=== PATIENT | male | born 1945 | race Caucasian/White ===

== ENCOUNTER → 2016-11-17 | Outpatient (CLI) | payer MEDICARE ==
[~2016-11-17] MED LIST: ALPR.25T PO; ASP325T PO; ASP81TEC PO; CLOP75TA PO; DILT120C PO; FISH OIL OMEGA1 EACH PO; HYOS0.1216 PO; ISM30TCR PO; MAG355OR55 PO; METO-272 PO; METO25TA2 PO; METO50TA7 PO; MTP25TSR PO; NIA500ERT PO; NITR0.4T12 SL; NTR.4SL SL; PANT40SU PO; RANO500T2 PO; RNT150T PO; SIMV40TA2 PO; SMV10T PO; SMV20T PO
--- OUTSIDE RECORDS SUMMARY | 2016-11-17 15:22 | XMS REPORT | Continuity of Care Document ---
Author Author [facility] Address Unknown Phone Unavailable Allergies Active Description Code Type Severity Reaction Onset Reported/Identified Relationship to Patient Clinical Status Yes No Known Drug Allergies [id number] Drug Allergy Unknown N/ A 01/30/2011 Medications Problems Date Dx Coded Attending Type Code Diagnosis Diagnosed By 08/20/2013 AGATHA HIGGINBOTHAM DO V04.81 FLU SHOT 10/01/2014 JEREMIAH CULVER FACC, ELIANA FACP CCDS Ot 272.4 10/01/2014 JEREMIAH CULVER FACC, ELIANA FACP CCDS Ot 401.9 10/01/2014 JEREMIAH CULVER FACC, ELIANA FACP CCDS Ot 414.00 10/01/2014 JEREMIAH CULVER FACC, ELIANA FACP CCDS Ot 786.59 Procedures Code Description Performed By Performed On G0008 FLU ADMINISTRATION (MEDICARE ONLY) 08/20/2013 Results Encounters ACCT No. Visit Date/Time Discharge Status Pt. Type Provider Facility Loc./Unit Complaint [id number] 08/20/2013 11:12:00 08/20/2013 23: 59:59 CLS Outpatient AGATHA HIGGINBOTHAM DO
--- NOTE | 2016-11-17 18:28 | Diagnostic Imaging Report ---
EXAMINATION: AP and frog lateral views of the right hip. INDICATION: Right hip pain. FINDINGS: There is significant cortical thickening and mild deformity with expanded appearance of the bone involving the right femoral head, neck, and subtrochanteric shaft. It appears to involve the shaft more distally below the level of the image as well. The frog lateral view suggests slight deformity as well. There are moderate osteoarthritis changes with particular significant joint space loss in the lateral aspect of right hip joint. No definite fracture. 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 Complete assessment with right femur radiographs is suggested. There is also moderate osteoarthritis in the right hip joint. Dictated by: Dictated on workstation # [id number]
== END ==
LOC: RAD 15:18
PROVIDERS: ATTEND Internal Medicine
DX: M25.551 Pain in right hip (principal)
CPT/HCPCS: 73502

== ENCOUNTER → 2016-11-21 | Outpatient (CLI) | payer MEDICARE ==
--- OUTSIDE RECORDS SUMMARY | 2016-11-21 15:40 | XMS REPORT | Continuity of Care Document ---
Author Author [facility] Address Unknown Phone Unavailable Allergies Active Description Code Type Severity Reaction Onset Reported/Identified Relationship to Patient Clinical Status Yes No Known Drug Allergies [id number] Drug Allergy Unknown N/ A 01/30/2011 Medications Problems Date Dx Coded Attending Type Code Diagnosis Diagnosed By 08/20/2013 AGATHA HIGGINBOTHAM DO V04.81 FLU SHOT 10/01/2014 JEREMIAH CULVER FACChaparro, ELIANA FACP CCDS Ot 272.4 10/01/2014 JEREMIAH CULVER FACC, ELIANA FACP CCDS Ot 401.9 10/01/2014 JEREMIAH CULVER FACC, ELIANA FACP CCDS Ot 414.00 10/01/2014 JEREMIAH CULVER FACC, ELIANA FACP CCDS Ot 786.59 Procedures Code Description Performed By Performed On G0008 FLU ADMINISTRATION (MEDICARE ONLY) 08/20/2013 Results Encounters ACCT No. Visit Date/Time Discharge Status Pt. Type Provider Facility Loc./Unit Complaint [id number] 08/20/2013 11:12:00 08/20/2013 23: 59:59 CLS Outpatient AGATHA HIGGINBOTHAM DO
--- NOTE | 2016-11-21 19:52 | Diagnostic Imaging Report ---
INDICATION: Right hip pain. TECHNIQUE: AP and lateral views of right femur at 4:01 PM. CORRELATION STUDY: Recent hip radiograph 11/17/2016. FINDINGS: As seen on hip views, there is marked abnormal cortical thickening and diffuse heterogeneous patchy appearance about the medullary portions throughout the entirety of the right femur. This extends from the femoral head to the distal aspect of the femur. No acute fracture. There is some medial bowing of the femur. Few areas of lucencies to the cortex are noted; however, no fracture line is suggested. There is foreshortening of the femoral neck. Marked narrowing of the hip joint. There is loss of normal rounded configuration about the femoral head. Less severe degenerative change about the knee. Vascular calcification present. IMPRESSION: 1. Diffuse cortical and trabecular thickening throughout the targeted right femur perhaps slightly more pronounced proximally compared to distally. 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 There is suggestion of altered contour with medial and posterior bowing of the femur. No definitive fracture line. Dictated by: Dictated on workstation # [id number]
== END ==
LOC: RAD 15:36
PROVIDERS: ATTEND Internal Medicine
DX: M25.551 Pain in right hip (principal); R93.7 Abnormal findings on diagnostic imaging of other parts of musculoskeletal system
CPT/HCPCS: 73552

== ENCOUNTER → 2017-06-20 | Outpatient (CLI) | payer MEDICARE ==
--- NOTE | 2017-06-20 11:06 | Diagnostic Imaging Report ---
INDICATION: History of Paget's disease. COMPARISON: 11/21/2016 FINDINGS: Four radiographic views of the right femur were obtained. There is diffuse abnormal cortical and trabecular thickening and bow deformity of the right femur. Appearance is stable compared to prior exam. There is no evidence of new acute fracture or dislocation. Moderate degenerative changes of the right femoral acetabular joint space are noted. No unexpected radiopaque foreign bodies are seen. Note is made of calcified atherosclerosis. IMPRESSION: 1. Chronic diffuse deformity of the right femur consistent with patient's clinical history of Paget's disease. 2. No new acute fracture or dislocation of the right femur. Dictated by: Dictated on workstation # [id number]
--- NOTE | 2017-06-20 11:09 | Diagnostic Imaging Report ---
INDICATION: History of Paget's. COMPARISON: 11/21/2016 FINDINGS: Two radiographic views of the right hip were obtained and again demonstrate moderate abnormal cortical and trabecular thickening of the proximal right femur. There is underlying bow deformity of the femur as well. This is better appreciated on separately performed femur series. Note is also made of moderate degenerative changes of the right hip. There is no acute fracture or dislocation. No unexpected radiopaque foreign bodies are seen. IMPRESSION: 1. Stable abnormal appearance of the proximal portions of the right femur consistent with clinical history of Paget's disease. 2. Moderate osteoarthritic changes. 3. No acute fracture or dislocation of the right hip. Dictated by: Dictated on workstation # [id number]
== END ==
LOC: RAD 10:02
PROVIDERS: ATTEND Internal Medicine
DX: M88.851 Osteitis deformans of right thigh (principal); M16.11 Unilateral primary osteoarthritis, right hip
CPT/HCPCS: 73502; 73552

== ENCOUNTER 2017-07-24 10:45 | Outpatient (RCR) | payer MEDICARE | END 2017-08-22 09:23 | disposition home or self-care (01) | PROVIDERS: ATTEND Internal Medicine | DX: M88.851 Osteitis deformans of right thigh (principal) ==

== ENCOUNTER → 2017-10-05 | Outpatient (CLI) | payer MEDICARE ==
[~2017-10-05] MED LIST changes: +REGADENOSON 0.4 MG/5 ML SYR (LEXISCAN) IV ONE
[2017-10-05] MEDS: CATHETER FLUSH 10 ML SYR IV PRN ×2 (07:22→09:11)
[2017-10-05 09:03] VITALS: BP 140/75
--- NOTE | 2017-10-05 12:12 | STRESS TEST ---
DATE OF SERVICE: 10/05/2017 RESTING AND REGADENOSON ADENOSINE TECHNETIUM-99M TETROFOSMIN SPECT CT IMAGING ORDERING PHYSICIAN: Dr. Tran. PRIMARY PHYSICIAN: Dr. Zarco. CLINICAL DIAGNOSES: Coronary artery disease, hypertension, hyperlipidemia. Baseline images were carried out after injection of 10.83 mCi of technetium-99m Tetrofosmin. This was followed by 0.4 mg regadenoson and 30.6 mCi technetium-99m Tetrofosmin for stress imaging. He tolerated the procedure well and did not report significant symptoms. The electrocardiogram did not change significantly. Review of images at rest and following stress does not indicate significant perfusion defects consistent with significant myocardial ischemia or infarction. Some degree of diaphragmatic attenuation seen both at rest and following regadenoson infusion. Gated images show normal global left ventricular systolic function with normal regional wall motion, including the diaphragmatic wall of the left ventricle. CONCLUSIONS: 1. No evidence of significant myocardial ischemia or infarction on this study. 2. Normal regional wall motion. 3. Normal global left ventricular systolic function with a calculated ejection fraction of 61%. Job ID: [id number] DocumentID: [id number] Dictated Date: 10/05/2017 10:37:31 Parts Administrator Date: 10/05/2017 11:39:03 Dictated By: ELIANA TRAN MD, MA, FACP, FACC,
== END ==
LOC: CARD 06:57
PROVIDERS: ATTEND Internal Medicine Cardiovascular Disease
DX: I25.10 Atherosclerotic heart disease of native coronary artery without angina pectoris (principal); K44.9 Diaphragmatic hernia without obstruction or gangrene; E78.4 Other hyperlipidemia; E66.8 Other obesity; I10 Essential (primary) hypertension; K21.9 Gastro-esophageal reflux disease without esophagitis
CPT/HCPCS: 78452; 93017

== ENCOUNTER → 2020-12-08 | Outpatient (CLI) | payer MEDICARE ==
[~2020-12-08] VITALS: Ht 175 cm; Wt 86.0 kg
[~2020-12-08] MED LIST changes: +CATHETER FLUSH 10 ML SYR IV PRN
[2020-12-08 09:09] VITALS: BP 143/76
--- NOTE | 2020-12-10 11:38 | STRESS TEST ---
DATE OF SERVICE: 12/08/2020 RESTING AND POST REGADENOSON TECHNETIUM-99M TETROFOSMIN SPECT CT IMAGING ORDERING PHYSICIAN: Ruth Cardenas APRN PRIMARY PHYSICIAN: Dr. Zarco. CLINICAL DIAGNOSES: Coronary artery disease. Baseline images were carried out after injection of 10.33 mCi of technetium-99m Tetrofosmin. This was followed by 0.4 mg regadenoson and 30.6 mCi of technetium-99m Tetrofosmin for stress imaging. The electrocardiogram showed sinus rhythm at baseline. It did not change significantly with the regadenoson infusion. The patient noted some facial flushing following regadenoson infusion, which resolved in a few minutes. Overall, he tolerated the procedure well. Review of images at rest and following stress does not indicate any significant perfusion defects consistent with significant myocardial ischemia or infarction. Gated images show normal global left ventricular systolic function with normal regional wall motion. Left ventricular ejection fraction is calculated to be 50%. Left ventricular end diastolic volume is 88 mL. TID is absent (1.11). CONCLUSIONS: 1. No evidence of any significant myocardial ischemia or infarction on this study. 2. Normal regional wall motion. 3. Normal global left ventricular systolic function with a calculated ejection fraction of 50%. Job ID: [id number] DocumentID: [id number] Dictated Date: 12/10/2020 08:26:36 Naval Marine Engineer Date: 12/10/2020 11:36:35 Dictated By: ELIANA DANIELS MD, MA, FACP, FACC,
== END ==
LOC: CARD 08:00
PROVIDERS: ATTEND Nurse Practitioner Family
DX: I25.10 Atherosclerotic heart disease of native coronary artery without angina pectoris (principal)
CPT/HCPCS: 78452; 93017; A9502

== ENCOUNTER 2022-07-16 13:29 | Emergency (ER) | payer MEDICARE ==
[~2022-07-16] VITALS: Ht 177.8 cm; Wt 86.0 kg
[~2022-07-16 13:29] MED LIST changes: -CATHETER FLUSH 10 ML SYR IV PRN; -REGADENOSON 0.4 MG/5 ML SYR (LEXISCAN) IV ONE
--- NOTE | 2022-07-16 13:44 | ED Chest Pain ---
General Stated Complaint: CHEST PRESSURE/PAIN Source: patient Exam Limitations: no limitations (BHARAT EVANS APRN) History of Present Illness Date Seen by Provider: Jul 16, 2022 Time Seen by Provider: 13:44 Initial Comments 69 y/o male presents today with c/o epigastric and left sided chest pain that started at 1100 this morning while he was watching football and doing laundry. Pt reports he has chest pain more often than he does not. He reports h/o chronic chest pain for many years, has renewals specialist that he sees every 6 months and is due to see him one month. He had stress test approximately one year ago that was normal.Pt also reports h/o chronic acid reflux that is "really bad" and states most of the time he thinks his pain is just from that. Today his chest pain is accompanied by nausea. He denies radiation of pain, weakness, numbness, tingling, vision changes, back pain, SOA, palpitations, dizziness, lightheadedness, syncope, vomiting, diarrhea. Timing/Duration: 1-3 hours, constant Severity/Quality: mild, aching, dull Location: epigastric (and left sided) Radiation: no radiation Prior CP/Workup: cardiac cath, stress test Associated Symptoms: nausea/vomiting (nasuea only, no vomiting) (BHARAT EVANS APRN) Allergies and Home Medications Allergies Coded Allergies: No Known Drug Allergies (Unverified , 01/30/11) Patient Home Medication List Home Medication List Reviewed: Yes (BHARAT EVANS APRN) Alprazolam (Xanax) 0.25 Mg Tablet, 1 TAB PO BID PRN, (Reported) Entered as Reported by: WEST WALDRON on 02/21/11 1546 Aspirin (Aspirin Ec 81 Mg) 81 Mg Tabec, 81 MG PO DAILY, (Reported) Entered as Reported by: WEST WALDRON on 02/21/11 1532 Clopidogrel Bisulfate (Plavix 75 Mg) 75 Mg Tablet, 75 MG PO DAILY, (Reported) Entered as Reported by: ERUM PELAEZ on 02/02/11 1009 Diltiazem Hcl (Diltiazem Cd 120 Mg (Once Daily)) 120 Mg Cap.sr.24h, 1 EACH PO DAILY, (Reported) Entered as Reported by: WEST WALDRON on 03/18/11 175 Hyoscyamine Sulfate (Rx-Levsin Sl) 0.125 Mg Subl, 0.125 MG PO NEEDED, (Reported) Entered as Reported by: HANH SHIN on 09/01/112331 Isosorbide Mononitrate (Imdur) 30 Mg Tab, 30 MG PO DAILY@06:30, (Reported) Entered as Reported by: WEST WALDRON on 02/21/11 1536 Mag Hydrox/Al Hydrox/Simeth (Mylanta Liq) 355 Ml Oral.susp, 30 ML PO PRN, (Reported) Entered as Reported by: HANH SOSA on 03/18/11 020 Metoprolol Succinate (Toprol Xl) 25 Mg Tab, 25 MG PO DAILY, (Reported) Entered as Reported by: NIVIA DOMINGO on 09/02/11 1427 Niacin (Niaspan) 500 Mg Tablet.sa, 500 MG PO DAILY, (Reported) Entered as Reported by: WEST WALDRON on 02/21/11 154 Nitroglycerin (Nitrostat) 0.4 Mg Subl, 1 TAB SL PRN, (Reported) Entered as Reported by: HANH SOSA on 03/18/11201 Midland-3/Dha/Epa/Fish Oil (Fish Oil Midland-3 1,360 Mg Sfgl) 1 Each Capsule, 2 TSP PO DAILY, (Reported) Entered as Reported by: MOJGAN VALENZUELA on 01/30/112329 Pantoprazole Sodium (Protonix SUSP.) 40 Mg Suspdr.pkt, 40 MG PO BID, (Reported) Entered as Reported by: HANH SHIN on 09/01/112331 Ranitidine Hcl (Zantac 150 Mg) 150 Mg Tablet, 1 TAB PO BID, (Reported) Entered as Reported by: WEST WALDRON on 03/18/11 175 Ranolazine (Ranexa) 500 Mg Tab.sr.12h, 500 MG PO BID, (Reported) Entered as Reported by: WEST WALDRON on 02/21/11 154 Simvastatin (Zocor) 10 Mg Tab, 10 MG PO DAILY, (Reported) Entered as Reported by: ERUM PELAEZ on 04/24/11 1219 Review of Systems Review of Systems Constitutional: no symptoms reported EENTM: No Symptoms Reported Respiratory: No Symptoms Reported; Denies Cough, Denies Orthopnea, Denies Shortness of Air, Denies SOA With Exertion, Denies SOA at Rest Cardiovascular: Chest Pain; Denies Edema, Denies Lightheadedness, Denies Palpitations, Denies Syncope Gastrointestinal: Denies Blood Streaked Stools, Denies Difficulty Swallowing; Nausea; Denies Poor Appetite, Denies Poor Fluid Intake, Denies Vomiting Genitourinary: No Symptoms Reported Musculoskeletal: no symptoms reported Skin: no symptoms reported Psychiatric/Neurological: No Symptoms Reported; Denies Headache, Denies Numbness, Denies Paresthesia, Denies Tingling, Denies Tremors, Denies Weakness Endocrine: No Symptoms Reported (BHARAT EVANS APRN) Past Lvrkqdl-Hdaerd-Qpsnol Hx Patient Social History Tobacco Use?: No Substance use?: No Alcohol Use?: No (BHARAT EVANS APRN) Past Medical History Coronary Stent Respiratory: No Neurological: No Reproductive Disorders: No Genitourinary: No Gastrointestinal: Yes Gastroesophageal Reflux Arthritis (BHARAT EVANS APRN) Physical Exam Vital Signs Vital Signs - First Documented 07/16/22 13:38 Temp 36.8 Pulse 74 Resp 16 B/P (MAP) 141/81 (101) Pulse Ox 96 O2 Delivery Room Air (BRAD ESPINO MD) Vital Signs Capillary Refill : (BHARAT EVANS APRN) Height, Weight, BMI Height: '70.00" Weight: 204lbs. oz. 92.482262hz; 28.08 BMI Method:Stated General Appearance: No Apparent Distress, WD/WN HEENT: PERRL/EOMI, Normal ENT Inspection, Moist Mucous Membranes Respiratory: Chest Non Tender, Lungs Clear, Normal Breath Sounds, No Accessory Muscle Use, No Respiratory Distress Cardiovascular: Regular Rate, Rhythm, No Edema, No Murmur, Normal Peripheral Pulses Gastrointestinal: Normal Bowel Sounds, No Organomegaly, Soft; No Abnormal Bowel Sounds, No Distended, No Guarding, No Rebound; Tenderness (mild, epigastric) Extremity: Normal Capillary Refill, Normal Inspection, Normal Range of Motion, Non Tender, No Pedal Edema Neurologic/Psychiatric: Alert, Oriented x3, No Motor/Sensory Deficits, Normal Mood/Affect, valve machine operator II-XII Norm as Tested Skin: Normal Color, Warm/Dry (BHARAT EVANS PULLEY MORTISER OPERATOR) Progress/Results/Core Measures Results/Orders Lab Results Laboratory Tests Test 07/16/22 13:54 07/16/22 16:00 Range/Units White Blood Count 5.3 4.3-11.0 10^3/uL Red Blood Count 4.71 4.30-5.52 10^6/uL Hemoglobin 14.9 13.3-17.7 g/dL Hematocrit 44 40-54 % Mean Corpuscular Volume 93 80-99 fL Mean Corpuscular Hemoglobin 32 25-34 pg Mean Corpuscular Hemoglobin Concent 34 32-36 g/dL Red Cell Distribution Width 12.7 10.0-14.5 % Platelet Count 179 130-400 10^3/uL Mean Platelet Volume 10.2 9.0-12.2 fL Immature Granulocyte % (Auto) 0 % Neutrophils (%) (Auto) 74 42-75 % Lymphocytes (%) (Auto) 14 12-44 % Monocytes (%) (Auto) 11 0-12 % Eosinophils (%) (Auto) 0 0-10 % Basophils (%) (Auto) 0 0-10 % Neutrophils # (Auto) 3.9 1.8-7.8 10^3/uL Lymphocytes # (Auto) 0.8 L 1.0-4.0 10^3/uL Monocytes # (Auto) 0.6 0.0-1.0 10^3/uL Eosinophils # (Auto) 0.0 0.0-0.3 10^3/uL Basophils # (Auto) 0.0 0.0-0.1 10^3/uL Immature Granulocyte # (Auto) 0.0 0.0-0.1 10^3/uL Prothrombin Time 14.1 12.2-14.7 SEC INR Comment 1.1 0.8-1.4 Sodium Level 141 135-145 MMOL/L Potassium Level 4.2 3.6-5.0 MMOL/L Chloride Level 104 98-107 MMOL/L Carbon Dioxide Level 25 21-32 MMOL/L Anion Gap 12 5-14 MMOL/L Blood Urea Nitrogen 17 7-18 MG/DL Creatinine 1.06 0.60-1.30 MG/DL Estimat Glomerular Filtration Rate 71 BUN/Creatinine Ratio 16 Glucose Level 103 70-105 MG/DL Calcium Level 9.5 8.5-10.1 MG/DL Corrected Calcium 9.4 8.5-10.1 MG/DL Total Bilirubin 0.6 0.1-1.0 MG/DL Aspartate Amino Transf (AST/SGOT) 17 5-34 U/L Alanine Aminotransferase (ALT/SGPT) 18 0-55 U/L Alkaline Phosphatase 72 40-136 U/L Troponin I < 0.028 < 0.028 <0.028 NG/ML B-Type Natriuretic Peptide 30.4 <100.0 PG/ML Total Protein 6.7 6.4-8.2 GM/DL Albumin 4.1 3.2-4.5 GM/DL (BRAD ESPINO MD) Vital Signs/I&O 07/16/22 07/16/22 13:38 16:55 Temp 36.8 Pulse 74 56 Resp 16 18 B/P (MAP) 141/81 (101) 153/83 Pulse Ox 96 97 O2 Delivery Room Air Room Air (BRAD ESPINO MD) Initial ECG Impression Date: Jul 16, 2022 Initial ECG Impression Time: 13:45 Initial ECG Rate: 74 Initial ECG Rhythm: Normal Sinus Initial ECG Intervals: Normal Initial ECG Impression: Normal (BHARAT EVANS APRN) Departure Impression Primary Impression: Chest pain Disposition: 01 HOME, SELF-CARE Condition: Improved Departure-Patient Inst. Decision time for Depature: 16:15 (BHARAT EVANS APRN) Referrals: JUDAH VENEGAS MD (PCP/Family) Primary Care Physician Patient Instructions: Chest Pain (DC) ATTENDING PHYSICIAN NOTE: I was physically present as attending physician in the emergency department during the care of this patient, but I was not directly involved in the decision making or delivery of care for this patient. (BRAD ESPINO MD) BHARAT EVANS APRN Jul 16, 2022 13:44 BRAD ESPINO MD Jul 17, 2022 19:12
[2022-07-16] MEDS ORDERED: ANTACID SUSP 30 ML UDC (MYLANTA) PO ONE (14:00)
[2022-07-16 14:14] LABS: INR 1.1 (0.8-1.4); PROTHROMBIN TIME PATIENT 14.1 SEC (12.2-14.7)
[2022-07-16 14:15] LABS: BASOPHILS % (AUTO) 0 % (0-10); EOSINOPHILS % (AUTO) 0 % (0-10); HEMATOCRIT 44 % (40-54); HEMOGLOBIN 14.9 g/dL (13.3-17.7); LYMPHOCYTES # (AUTO) 0.8 10^3/uL (1.0-4.0); LYMPHOCYTES % (AUTO) 14 % (12-44); MEAN CORPUSCULAR HEMOGLOBIN 32 pg (25-34); MEAN CORPUSCULAR HGB CONC 34 g/dL (32-36); MEAN CORPUSCULAR VOLUME 93 fL (80-99); MEAN PLATELET VOLUME 10.2 fL (9.0-12.2); MONOCYTES # (AUTO) 0.6 10^3/uL (0.0-1.0); MONOCYTES % (AUTO) 11 % (0-12); NEUTROPHILS # (AUTO) 3.9 10^3/uL (1.8-7.8); NEUTROPHILS % (AUTO) 74 % (42-75); PLATELET COUNT 179 10^3/uL (130-400); WHITE BLOOD COUNT 5.3 10^3/uL (4.3-11.0)
[2022-07-16] MEDS ORDERED: LIDOCAINE 2% VISCOUS 15 ML UDC ONE (14:20)
[2022-07-16 14:24] LABS: ALBUMIN 4.1 GM/DL (3.2-4.5); BILIRUBIN,TOTAL 0.6 MG/DL (0.1-1.0); CALCIUM 9.5 MG/DL (8.5-10.1); CREATININE SERUM 1.06 MG/DL (0.60-1.30); POTASSIUM 4.2 MMOL/L (3.6-5.0); TOTAL PROTEIN 6.7 GM/DL (6.4-8.2)
[2022-07-16] MEDS ORDERED: LIDOCAINE 2% VISCOUS 15 ML UDC PO ONE (14:30)
--- NOTE | 2022-07-16 14:31 | Diagnostic Imaging Report ---
INDICATION: Chest pain. TECHNIQUE: Single view chest 2:01 PM. CORRELATION STUDY: None FINDINGS: The heart size, mediastinal configuration and pulmonary vascularity are within normal limits. The lungs are clear with no consolidating infiltrate. There is no significant effusion or pneumothorax. IMPRESSION: 1. Negative appearing single view chest. Dictated by: Dictated on workstation # [id number]
[2022-07-16 16:55] VITALS: BP 153/83
== END 2022-07-16 17:00 | disposition home or self-care (01) ==
LOC: EDUNIT# 13:29 → ER 13:32
DX: R07.89 Other chest pain (principal); Z95.5 Presence of coronary angioplasty implant and graft; Z28.310 Unvaccinated for COVID-19
CPT/HCPCS: 36415; 71045; 80053; 83880; 84484; 85025; 85610; 93005; 93041

== ENCOUNTER → 2022-10-17 | Outpatient (CLI) | payer MEDICARE ==
--- NOTE | 2022-10-17 18:21 | Diagnostic Imaging Report ---
EXAMINATION: Pelvis and bilateral hip radiographs. EXAM DATE: 10/17/2022, 9:18 a.m. COMPARISON: None available. HISTORY: Paget's disease. TECHNIQUE: Five views. FINDINGS: There is lytic and expansile appearance throughout the visualized right femur. There is asymmetric joint space narrowing, right greater than left. No other acute fracture is seen. Soft tissues are unremarkable. IMPRESSION: 1. Expansile lytic appearance throughout the right hip compatible with history of Paget's disease. 2. Degenerative changes of both hips with joint space narrowing, right greater than left. 3. No acute osseous abnormality. Dictated by: Dictated on workstation # [id number]
== END ==
LOC: RAD 09:01
PROVIDERS: ATTEND Internal Medicine
DX: M16.0 Bilateral primary osteoarthritis of hip (principal)
CPT/HCPCS: 73523

== ENCOUNTER → 2022-12-27 | Outpatient (CLI) | payer MEDICARE ==
[2022-12-27 14:33] LABS: BASOPHILS % (AUTO) 0 % (0-10); EOSINOPHILS % (AUTO) 0 % (0-10); HEMATOCRIT 46 % (40-54); HEMOGLOBIN 15.9 g/dL (13.3-17.7); LYMPHOCYTES # (AUTO) 0.7 10^3/uL (1.0-4.0); LYMPHOCYTES % (AUTO) 13 % (12-44); MEAN CORPUSCULAR HEMOGLOBIN 32 pg (25-34); MEAN CORPUSCULAR HGB CONC 34 g/dL (32-36); MEAN CORPUSCULAR VOLUME 92 fL (80-99); MEAN PLATELET VOLUME 10.3 fL (9.0-12.2); MONOCYTES # (AUTO) 0.6 10^3/uL (0.0-1.0); MONOCYTES % (AUTO) 10 % (0-12); NEUTROPHILS # (AUTO) 4.3 10^3/uL (1.8-7.8); NEUTROPHILS % (AUTO) 76 % (42-75); PLATELET COUNT 169 10^3/uL (130-400); WHITE BLOOD COUNT 5.7 10^3/uL (4.3-11.0)
[2022-12-27 14:44] LABS: PROTHROMBIN TIME PATIENT 13.4 SEC (12.2-14.7)
[2022-12-27 14:51] LABS: ALANINE AMINOTRANSFERASE 17 U/L (0-55); ALBUMIN 4.3 GM/DL (3.2-4.5); ALKALINE PHOSPHATASE 73 U/L (40-136); BILIRUBIN,TOTAL 0.5 MG/DL (0.1-1.0); BUN/CREATININE RATIO 15; CALCIUM 9.9 MG/DL (8.5-10.1); CARBON DIOXIDE 29 MMOL/L (21-32); CHLORIDE 104 MMOL/L (98-107); CREATINE KINASE 116 U/L (30-200); CREATININE SERUM 1.02 MG/DL (0.60-1.30); GFR ESTIMATED 75; GLUCOSE 101 MG/DL (70-105); SODIUM 141 MMOL/L (135-145)
== END ==
LOC: CARD 14:17
PROVIDERS: ATTEND Nurse Practitioner Family
DX: R07.9 Chest pain, unspecified (principal)
CPT/HCPCS: 36415; 80053; 82550; 84443; 84484; 85025; 85610; 93005

== ENCOUNTER → 2023-03-29 | Outpatient (CLI) | payer MEDICARE | LOC: CARD 09:59 | PROVIDERS: ATTEND Nurse Practitioner Family | DX: I35.1 Nonrheumatic aortic (valve) insufficiency (principal) | CPT/HCPCS: 93306 ==

== ENCOUNTER → 2023-07-04 | Outpatient (CLI) | payer MEDICARE ==
[~2023-07-04] VITALS: Ht 175 cm; Wt 91.0 kg
[~2023-07-04] MED LIST changes: +CATHETER FLUSH 10 ML SYR IVP PRN; +REGADENOSON 0.4 MG/5 ML SYR IV ONE
[2023-07-04 13:26] VITALS: BP 141/77
--- NOTE | 2023-07-04 22:36 | STRESS TEST ---
DATE OF SERVICE: 07/04/2023 RESTING AND POST REGADENOSON TECHNETIUM-99M TETROFOSMIN SPECT CT IMAGING ORDERING PHYSICIAN: Ruth Cardenas APRN. PRIMARY PHYSICIAN: Dr. Zarco. CLINICAL DIAGNOSIS: Chest discomfort. Baseline images were carried out after injection of 10.37 mCi technetium-99m tetrofosmin. This was followed by 0.4 mg regadenoson and 30.8 mCi of technetium-99m tetrofosmin for stress imaging. The electrocardiogram showed sinus rhythm at baseline. It did not change significantly with the regadenoson infusion. The patient tolerated the procedure well. Review of images at rest and following stress does not indicate any significant perfusion defects consistent with myocardial ischemia or infarction. Gated images show normal global left ventricular systolic function with normal regional wall motion. Left ventricular ejection fraction is calculated to be 49%. CONCLUSIONS: 1. No evidence of significant myocardial ischemia or infarction on this study. 2. Normal regional wall motion. 3. Well preserved global left ventricular systolic function with a calculated ejection fraction of 49%. Job ID: [id number] DocumentID: [id number] Dictated Date: 07/04/2023 16:31:54 Ductfixing Plumber Date: 07/04/2023 22:20:00 Dictated By: ELIANA DANIELS MD; MA; FACP; FACC;
== END ==
LOC: CARD 11:56
PROVIDERS: ATTEND Nurse Practitioner Family
DX: R07.89 Other chest pain (principal)
CPT/HCPCS: 78452; 93017; A9502